=== PATIENT | male | born 1970 | race Two or more races ===

== ENCOUNTER 2024-11-22 21:11 | Emergency (ER) | payer MEDICARE ==
[~2024-11-22] VITALS: Ht 167.6 cm; Wt 86.2 kg
[2024-11-22] MEDS ORDERED: HYDROCODONE/APAP 5-325MG TABLET ONE (22:23)
[2024-11-22] MEDS: HYDROCODONE/APAP 5-325MG TABLET PO ONE (22:23)
[2024-11-22 22:33] LABS: BASOPHILS % (AUTO) 0.4 % (0.0-2.0); EOSINOPHILS # (AUTO) 0.4 K/uL (0.0-0.7); EOSINOPHILS % (AUTO) 5.4 % (0.0-7.0); HEMATOCRIT 37.8 % (36.7-47.1); HEMOGLOBIN 12.8 g/dL (12.5-16.3); MEAN CORPUSCULAR HEMOGLOBIN 27.1 uug (23.8-33.4); MEAN CORPUSCULAR HGB CONC 34 g/dL (32.5-36.3); MEAN CORPUSCULAR VOLUME 79.9 fL (73.0-96.2); MONOCYTES # (AUTO) 0.9 K/uL (0.1-1.30); MONOCYTES % (AUTO) 10.9 % (0.0-11.0); NEUTROPHILS # (AUTO) 4.7 K/uL (1.8-8.9); NEUTROPHILS % (AUTO) 58.3 % (38.5-71.5); PLATELET COUNT (AUTO) 241 K/uL (152-348); RED BLOOD CELL COUNT(AUTO) 4.73 MIL/uL (4.06-5.63); RED CELL DISTRIBUTION WIDTH 13.2 % (12.1-16.2); WHITE BLOOD COUNT (AUTO) 8.2 K/uL (3.6-10.2)
[2024-11-22 22:42] LABS: CALCIUM 9.1 mg/dL (8.5-10.1); CREATININE 1.2 mg/dL (0.6-1.3); POTASSIUM 3.8 mmol/L (3.5-5.1)
[2024-11-22 22:45] LABS: DIFFERENTIAL COMMENT 1
[2024-11-22 22:55] LABS: ALBUMIN 4.4 g/dL (3.4-5.0); BILIRUBIN,TOTAL 0.4 mg/dL (0.2-1.0); TOTAL PROTEIN, SERUM 7.5 g/dL (6.4-8.2)
[2024-11-22] MEDS ORDERED: HYDR-4209 PO (23:25)
[2024-11-22] MEDS ORDERED: ONDA4TAB11 PO (23:25)
[2024-11-22 23:46] VITALS: BP 117/72; TEMP 98; O2SAT 97
== END 2024-11-22 23:47 | disposition home or self-care (01) ==
LOC: ER 21:16
DX: M79.661 Pain in right lower leg (principal); M79.662 Pain in left lower leg; R60.0 Localized edema; R00.1 Bradycardia, unspecified; E11.9 Type 2 diabetes mellitus without complications; E78.5 Hyperlipidemia, unspecified
CPT/HCPCS: 36415; 85025; A4606; A4663